=== PATIENT | female | born 1940 | race Caucasian/White ===

== ENCOUNTER 2018-12-03 12:43 | Inpatient (IN) | payer OTHER ==
[2018-12-03] MEDS ORDERED: NS 500 ML IV ONE (14:30)
[2018-12-03] MEDS ORDERED: ONDANSETRON 4 MG/2 ML VIAL IVP PRN (14:31)
[2018-12-03] MEDS ORDERED: ONDANSETRON DISINTEGRATING 4 MG TAB PO PRN (14:31)
[2018-12-03] MEDS ORDERED: D50W 25 GM/50 ML SYR IVP PRN (14:32)
--- NOTE | 2018-12-03 14:39 | PDGENHP ---
History and Physical - Chief Complaint fever - History of Present Illness Pt is a 78 yo female with CLL who presented to Oncology today with Fever of 103.6 last night. She has generalized malaise, feels dehydrated, and has had a mild cough/congestions for several days. In the office she was noted not to have a fever but blood test showed neutropenia. Influenza was tested and is negative. She is being admitted for neutropenic fevers. She is currently not febrile. She is on RA. VSS. She has not had productive sputum. She denies urinary symptoms. denies cp, palpitations, sob. She does report a hx of possible CAD but she does not recall all details. PMHx: CLL, NIDDM, HLD, Shingles SHx: No tobacco, ETOH, Illicits FmHx: non contributory Labs: WBC: 2.15 Na: 132 History Information - Allergies/Home Medication List Allergies/Adverse Reactions: No Known Allergies Allergy (Verified 12/03/18 14:18) Home Medications: Ibuprofen [Motrin (*)] 200 mg PO DAILY PRN 09/05/16 [Last Taken 12/02/18] Simvastatin [Zocor] 20 mg PO HS 09/05/16 [Last Taken 12/02/18] diphenhydrAMINE [Benadryl 25 MG (*)] 25 mg PO HS 12/03/18 [Last Taken 12/02/18] metFORMIN HCL [Glucophage 500 mg (*)] 500 mg PO HS 12/03/18 [Last Taken 12/02/18 ] I have personally reviewed and updated: medical history, social history - Social History Smoking Status: Never smoked Review of Systems Review of Systems: ROS: 10pt was reviewed & negative except for what was stated in HPI & below Physical Exam Physical Exam: Temp Pulse Resp BP Pulse Ox 36.9 C 90 16 119/81 H 95 12/03/18 14:01 12/03/18 14:01 12/03/18 14:01 12/03/18 14:01 12/03/18 14:01 Constitutional: no apparent distress Eyes: PERRL Ears, Nose, Mouth, Throat: dry mucous membranes Cardiovascular: regular rate and rhythym, No edema Respiratory: no respiratory distress, reduced air movement, No rhonchi Gastrointestinal: normoactive bowel sounds, soft, non-tender abdomen Genitourinary: no bladder fullness Skin: warm Neurologic: AAOx3 Psychiatric: interacting appropriately, not anxious, not encephalopathic Lymph, Heme, Immunologic: No petechiae Assessment & Plan Assessment: #Neutropenic Fever #Cough #Hyponatremia, likely due to volume deficit #Dehydration #CLL #NIDDM #HLD Plan: Admit Cefepime Blood cultures Urine Culture IVF with Bolus ISS, hold Metformin CXR Lovenox for DVT proph
[2018-12-03] MEDS ORDERED: CEFEPIME HCL 2 GM in NS 100 ML IV SCH (15:00)
[2018-12-03] MEDS: CEFEPIME HCL 2 GM in NS 100 ML IV SCH (16:50)
[2018-12-03] MEDS: NS 1,000 ML IV SCH (16:53)
--- NOTE | 2018-12-03 17:41 | GCON ---
The patient is a very pleasant 78-year-old female who has CLL, she has been on acalabrutinib and was doing well until yesterday when she developed some chills. She presented to the clinic today with a fever to 103.6, and of note, her white cell count had decreased and she was quite neutropenic with a total white count of 2.15 and only 1.8% neutrophils. ANC was 0.04. The remainder of her differentia l showed 33% lymphocytes, and 63% monocytes. She had really been doing quite well except for mild gu m soreness prior to that. She denies any headaches or cough or dysuria or GI issues. She is having some chilling at the time of this conversation. Of note, she was diagnosed with CLL in 2016 when she presented with right-sided ear symptoms and even tually was noted to have an abnormal mass in the right sphenoid wing. Additional imaging showed ketan opathy in the tabitha hepatis and periaortic and retroperitoneal lymph nodes. 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 A bone marrow biopsy showed 70% involvement with CLL . She was started on a clinical trial of ACP 196, which is also called acalabrutinib and Gazyva, and went into an excellent remission. As of 11/05/2018, white count 4.7, hemoglobin was 13.4, hematocrit 39.7, and her ANC was 3.36. PAST MEDICAL HISTORY: Significant for CLL, diabetes and a history of shingles. SOCIAL HISTORY: She is a nonsmoker. REVIEW OF SYSTEMS: Negative except as discussed in the HPI. FAMILY HISTORY: Noncontributory. PHYSICAL EXAM: VITAL SIGNS: Currently, she is a pleasant female appearing alert. Blood pressure 140 /73. She is afebrile. Heart rate 93, sat 97% on room air. HEENT: She is not icteric. Gums may be a bit erythematous. Pharynx is unremarkable. LYMPH: I detect no cervical, supraclavicular, axillary, or inguinal adenopathy. LUNGS: Clear to aus cultation percussion. CARDIAC: Exam is unremarkable with a normal S1, S2. ABDOMEN: Shows normal camilo wel sounds and is nontender. EXTREMITIES: No edema. Chest x-ray is unremarkable. Remainder of her CBC shows a hemoglobin of 13.6, hematocrit 39.5, and p latelets of 219,000. Chemistry panel shows a sodium of 132, but is otherwise really pretty unremarka ble. Testing for influenza A and B is negative. Urinalysis from today is unremarkable except for tr regino ketones. IMPRESSION: Patient with Chronic lymphocytic leukemia on acalabrutinib. She has developed a fairly h igh fever and chills and her ANC has dropped significantly. It is unclear to me whether her ANC drop ped possibly related to acalabrutinib and she has developed a fever related to that or if she has an infection most likely viral, that has caused a sudden decrease in her ANC. I do notice significant m onocytosis. I think at this time, hospitalization with IV antibiotics which is cefepime is quite awa sonable. Blood cultures are pending as is a respiratory PCR panel. If her neutropenia does not reso lve, consideration of colony-stimulating factor may be reasonable. Our service will follow with you. /[id number]/MODL
[2018-12-03] MEDS: ACETAMINOPHEN 325 MG TAB PO PRN (20:48)
[2018-12-03] MEDS: ATORVASTATIN CALCIUM 10 MG TAB PO SCH (20:49)
[2018-12-03] MEDS: diphenhydrAMINE 25 MG CAP PO SCH (20:49)
[2018-12-03] MEDS: INSULIN LISPRO 100 UNIT/ML SC SCH (23:03)
[2018-12-04] MEDS: ACETAMINOPHEN 325 MG TAB PO PRN ×3 (05:19→21:16)
[2018-12-04] MEDS: CEFEPIME HCL 2 GM in NS 100 ML IV SCH ×2 (05:23→17:38)
[2018-12-04] MEDS: NS 1,000 ML IV SCH (05:23)
[2018-12-04 06:01] LABS: PLATELET COUNT 206 10^3/uL (150-400)
--- NOTE | 2018-12-04 08:24 | PDMN ---
Medical Necessity [place] [facility] [place] and Other febrile illness: neutropenic fever - 78 yr old with PMHx CLL, DM - currently on acalabrutinib- presents with fever , malaise, dehydration, cough, congestion., anticipate > 2 MN for ongoing med nec care, further monitoring and tx.
[2018-12-04] MEDS: INSULIN LISPRO 100 UNIT/ML SC SCH ×2 (08:26→19:47)
[2018-12-04] MEDS: ENOXAPARIN 40 MG/0.4 ML SYR SC SCH (09:59)
--- NOTE | 2018-12-04 11:49 | HOSPPROG ---
Hospitalist Progress Note Assessment/Plan: #Neutropenic Fever -w/u negative #Cough, resolved #Hyponatremia, likely due to volume deficit, resolved #Dehydration, much improved #CLL #NIDDM #HLD Plan: Inpatient Cefepime Blood cultures - NGTF UA: unremarkable CXR: unremarkable Trial off IVF ISS, hold Metformin Lovenox for DVT proph Subjective: still with fever. Denies cough. denies urinary sx's. Objective: Vital Signs Temp Pulse Resp BP Pulse Ox 36.9 C 94 16 112/70 93 12/04/18 08:49 12/04/18 08:49 12/04/18 08:49 12/04/18 08:49 12/04/18 08:49 Microbiology 12/03/18 15:35 Respiratory Panel (PCR) - Final Nasal, Sinus - [place] Viral Transport No Organism Detected By Pcr Laboratory Results 12/04/18 05:25 12/04/18 05:25 12/03/18 12/04/18 12/05/18 05:59 05:59 05:59 Intake Total 2175 Balance 2175 - Physical Exam Constitutional: no apparent distress Eyes: PERRL, EOMI Ears, Nose, Mouth, Throat: moist mucous membranes, hearing normal Cardiovascular: regular rate and rhythym, no murmur, rub, or gallop, No edema Respiratory: no respiratory distress, no rales or rhonchi, clear to auscultation Gastrointestinal: normoactive bowel sounds, soft, non-tender abdomen Skin: warm Neurologic: AAOx3 Psychiatric: interacting appropriately, not anxious, not encephalopathic Lymph, Heme, Immunologic: No petechiae ICD10 Worksheet Patient Problems: Problems Problem Status Onset Neutropenia Acute - ICD10 Problem Qualifiers (1) Neutropenia
--- NOTE | 2018-12-04 15:31 | SOAPPROG ---
SOAP Progress Note Assessment/Plan: Assessment: 1. CLL 2.Neutropenic fever, feels better today, ANC still quite low Plan:Start Filgrastim, continue iv antibiotics 12/04/18 15:29 Subjective: Feels ok, gums still a bit sore Objective: Vital Signs Temp Pulse Resp BP Pulse Ox 98.8 F 94 16 146/89 H 94 12/04/18 13:19 12/04/18 13:19 12/04/18 13:19 12/04/18 13:19 12/04/18 13:19 Microbiology 12/03/18 15:35 Respiratory Panel (PCR) - Final Nasal, Sinus - [place] Viral Transport No Organism Detected By Pcr Laboratory Results 12/04/18 05:25 12/04/18 05:25 12/03/18 12/04/18 12/05/18 05:59 05:59 05:59 Intake Total 2175 Balance 2175 Physical Exam - Physical Exam General Appearance: alert, no apparent distress Respiratory: lungs clear Cardiac/Chest: regular rate, rhythm Abdomen: normal bowel sounds, non-tender ICD10 Worksheet Patient Problems: Problems Problem Status Onset Neutropenia Acute
--- NOTE | 2018-12-04 15:52 | ASMTCMCOM ---
CM Note CM Note Notes: Spoke with pt in the room and with pt's RN. Pt admitted for neutropenic fever in the setting of leukemia. Pt lives with independently. Hospitalist not willing to discharge until pt is afebrile for 24 hours. Pt's last fever at 0200 this morning. No therapies ordered. Anticipate pt will discharge independently. CM to follow. D/C Plan: Independent. Date Signed: 12/04/2018 03:51 PM Electronically Signed By:Elisa Johnson
[2018-12-04] MEDS: FILGRASTIM-SNDZ 480 MCG/0.8 ML SYR SC SCH (15:59)
[2018-12-04] MEDS: ATORVASTATIN CALCIUM 10 MG TAB PO SCH (21:14)
[2018-12-04] MEDS: diphenhydrAMINE 25 MG CAP PO SCH (21:14)
[2018-12-05] MEDS: CEFEPIME HCL 2 GM in NS 100 ML IV SCH ×2 (05:44→17:09)
[2018-12-05] MEDS: ACETAMINOPHEN 325 MG TAB PO PRN ×2 (05:48→22:04)
[2018-12-05 05:50] LABS: PLATELET COUNT 216 10^3/uL (150-400)
[2018-12-05] MEDS: INSULIN LISPRO 100 UNIT/ML SC SCH ×3 (09:13→17:15)
[2018-12-05] MEDS: ENOXAPARIN 40 MG/0.4 ML SYR SC SCH (13:15)
[2018-12-05] MEDS: FILGRASTIM-SNDZ 480 MCG/0.8 ML SYR SC SCH (14:50)
--- NOTE | 2018-12-05 16:15 | SOAPPROG ---
SOAP Progress Note Assessment/Plan: A/P: * Neutropenic fever: no source identified, afebrile, ANC improving with G-CSF. May be able to d/c when ANC adequate, likely with empiric course of oral abx. * CLL: acalabrutinib being held. Not clear if acute drop in ANC due to drug or another cause (?viral infxn). 12/05/18 16:13 Subjective: Feeling much better. Gum tenderness resolved. No localizing sxs. O: VS reviewed, AF. Gen: A&O, NAD. HEENT: negative oral exam. Lungs: CTA. Abd: soft, NT. Skin: occasional purpura forearms. Microbiology 12/03/18 15:35 Nasal, Sinus - [place] Viral Transport Respiratory Panel ( PCR) - Final No Organism Detected By Pcr Laboratory Tests 12/04/18 12/05/18 05:25 05:25 WBC 2.56 L 2.95 L Hgb 13.0 13.2 Plt Count 206 216 Absolute Neuts (auto) 0.05 L 0.54 L Objective: Vital Signs Temp Pulse Resp BP Pulse Ox 36.7 C 90 16 137/75 H 93 12/05/18 12:24 12/05/18 12:24 12/05/18 12:24 12/05/18 12:24 12/05/18 12:24 Laboratory Results 12/05/18 05:25 12/04/18 05:25 12/04/18 12/05/18 12/06/18 05:59 05:59 05:59 Intake Total 2175 950 Balance 2175 950 ICD10 Worksheet Patient Problems: Problems Problem Status Onset Neutropenia Acute
--- NOTE | 2018-12-05 16:34 | HOSPPROG ---
Hospitalist Progress Note Assessment/Plan: Subjective Follow-up on neutropenic fever. No acute events overnight. Patient states she is feeling much better. Case was reviewed with Oncology as well. Objective Vital signs as detailed below Exam General-awake alert conversant no acute distress Heart-regular rate and rhythm no murmurs Lungs-Clear to auscultation with normal respiratory effort Abdomen-soft nontender nondistended normal bowel sounds -no Tamez catheter in place Extremities-no significant pitting edema or calf pain with palpation Skin-no concerning skin rashes noted Labs as detailed below Assessment and plan Neutropenic fever-uncertain source. No localizing symptoms currently. Her blood cultures from December 03 are negative. Continue with current empiric treatment and reassess tomorrow. Neutropenia is improving. Hyponatremia-resolved with sodium at 1:36 a.m.. CLL-this is underlying diagnosis. Diabetes mellitus type 2-continue with sliding scale insulin. Hyperlipidemia-continue atorvastatin. DVT prophylaxis-patient is currently on Lovenox. Disposition-I would anticipate she would be able to return home once medically clear. Objective: Vital Signs Temp Pulse Resp BP Pulse Ox 36.7 C 90 16 137/75 H 93 12/05/18 12:24 12/05/18 12:24 12/05/18 12:24 12/05/18 12:24 12/05/18 12:24 Laboratory Results 12/05/18 05:25 12/04/18 05:25 12/04/18 12/05/18 12/06/18 05:59 05:59 05:59 Intake Total 2175 950 Balance 2175 950 ICD10 Worksheet Patient Problems: Problems Problem Status Onset Neutropenia Acute
[2018-12-05] MEDS: ATORVASTATIN CALCIUM 10 MG TAB PO SCH (22:04)
[2018-12-05] MEDS: diphenhydrAMINE 25 MG CAP PO SCH (22:04)
[2018-12-06] MEDS: CEFEPIME HCL 2 GM in NS 100 ML IV SCH (05:37)
[2018-12-06 05:45] LABS: PLATELET COUNT 258 10^3/uL (150-400)
[2018-12-06 08:06] VITALS: BP 115/60
[2018-12-06] MEDS: INSULIN LISPRO 100 UNIT/ML SC SCH ×2 (08:55→12:32)
[2018-12-06] MEDS: ENOXAPARIN 40 MG/0.4 ML SYR SC SCH ×2 (08:59→09:00)
--- NOTE | 2018-12-06 11:58 | ASMTLACE ---
LACE Length of stay for Answers: 2 days current admission Acuity / Level of Answers: Yes Care: Did the patient have an inpatient admission? Comorbidities - select Answers: Diabetes (uncontrolled or all that apply controlled) Opioid dependence / Chronic pain Other Notes: HLD # of Emergency department Answers: 0 visits in the last 6 months Score: 11 Date Signed: 12/06/2018 11:58 AM Electronically Signed By:Adrienne Burns RN
--- NOTE | 2018-12-06 12:01 | ASMTDCNOTE ---
Case Management Discharge Discharge Order Complete? Answers: Yes Patient to Obtain Answers: Independently Medications Transportation Arranged Answers: Family/Friends Family Notified Answers: Yes Discharge Comments Notes: medically cleared for discharge to home . No current needs. Date Signed: 12/06/2018 12:00 PM Electronically Signed By:Adrienne Burns RN
--- NOTE | 2018-12-06 12:52 | SOAPPROG ---
SOAP Progress Note Assessment/Plan: A/P: * Neutropenic fever: no source identified, afebrile, ANC normalized with G-CSF x2d. Plan d/c today with oral abx to complete 7 days. Although no source, underlying CLL/immunosuppression a concern. Will followup in office this week. Precautions given. * CLL: acalabrutinib being held. Not clear if acute drop in ANC due to drug or another cause (?viral infxn). 12/06/18 12:52 Subjective: Feels well, no concerns. Eager to go home. No localizing sxs. O: VS reviewed, AF. Gen: NAD, A&O. Well-appearing. Laboratory Tests 12/06/18 12/06/18 05:15 05:15 WBC 9.77 H Hgb 12.7 Plt Count 258 Absolute Seg Neuts 3.56 Absolute Band Neuts 1.38 H Sodium 137 Potassium 3.9 Chloride 105 Carbon Dioxide 25 BUN 12 Creatinine 0.7 Glucose 97 Objective: Vital Signs Temp Pulse Resp BP Pulse Ox 36.8 C 93 16 115/60 92 12/06/18 08:00 12/06/18 08:00 12/06/18 08:00 12/06/18 08:00 12/06/18 08:00 Laboratory Results 12/06/18 05:15 12/06/18 05:15 12/05/18 12/06/18 12/07/18 05:59 05:59 05:59 Intake Total 950 720 Balance 950 720 ICD10 Worksheet Patient Problems: Problems Problem Status Onset Neutropenia Acute
--- NOTE | 2018-12-07 03:18 | GDS ---
DISCHARGE DIAGNOSIS: Neutropenic fever. HISTORY OF PRESENT ILLNESS: The patient is a pleasant 78-year-old female with a past medical history of chronic lymphocytic leukemia and neutropenia, who developed a fever and presented for medical att ention. She was admitted for further workup and empiric treatment with cefepime. Her workup include d blood cultures, as well as respiratory pathogen PCR as well as a urinalysis and chest x-ray. These were unrevealing for a source of the fever, and patient really did not have any localizing symptoms. Fortunately, her neutropenia did improve and it was felt safe for discharge from the hospital. Jerod black was reviewed with Dr. Anthony with oncology, and we decided we would have her continue with Levaquin fo r 3 additional days. HOSPITAL COURSE BY PROBLEM: 1. Neutropenic fever, uncertain source. No localizing symptoms currently. Workup has been negative thus far as well. Neutropenia has resolved at this time, and we will continue with 3 additional dos es of Levaquin and monitor thereafter. 2. Hyponatremia, resolved. 3. CL. This is her underlying oncology diagnosis, and is followed at [facility]. 4. Diabetes mellitus type 2. No changes were made during this hospitalization. 5. Hyperlipidemia. The patient was continued on atorvastatin. 6. DVT prophylaxis. Patient was treated Lovenox during this admission. 7. Disposition. The patient appears stable for discharge home today. PHYSICAL EXAM ON DISCHARGE: VITAL SIGNS: Temperature 36.8, blood pressure 115/60, heart rate 93, re spirations 16, satting 92% on room air. GENERAL: The patient appears comfortable. She is nontoxic appearing. Awake, alert, conversant. HEART: Regular rate and rhythm. No murmurs. LUNGS: Clear o n auscultation with normal respiratory effort. ABDOMEN: Soft, nontender, nondistended. : No Fol ey catheter in place. EXTREMITIES: No significant pitting edema. SKIN: No concerning rashes noted . LABORATORY STUDIES: Notable studies: White blood cell count on the day of discharge was 9.7, hemogl obin 12.7, platelets 258. Her last 4 glucose checks were 75, 114, 173, and 162. Blood cultures nega tive. PCR negative. DISCHARGE MEDICATIONS: In short, no medication changes were made other than 3 additional days of Lev aquin. Simvastatin 20 mg nightly, metformin 500 mg nightly, Levaquin 500 mg daily for 3 additional d ays. DISCHARGE INSTRUCTIONS: I recommended a followup visit with her oncologist in 1-2 weeks' time. Othe rwdea, she was advised to seek medical attention should she develop any fevers after discharging from the hospital. /[id number]/MODL
== END 2018-12-06 12:46 | disposition home or self-care (01) | DRG 809 ==
LOC: F1N 13:31
PROVIDERS: ADMIT Family Medicine; ATTEND Family Medicine
DX: D70.9 Neutropenia, unspecified (principal); C91.10 Chronic lymphocytic leukemia of B-cell type not having achieved remission; E87.1 Hypo-osmolality and hyponatremia; R50.81 Fever presenting with conditions classified elsewhere; E11.9 Type 2 diabetes mellitus without complications; E78.5 Hyperlipidemia, unspecified; E86.0 Dehydration
CPT/HCPCS: J0692; J1650; Q5101